=== PATIENT | female | born 1960 | race Caucasian/White ===

== ENCOUNTER 2016-03-05 08:44 | Emergency (ER) | payer OTHER, MEDICARE ==
[~2016-03-05] VITALS: Ht 160 cm; Wt 68.0 kg
[~2016-03-05 08:44] MED LIST: ADVAIR DISKUS 21 DSK PO; ALBUTEROL 3 ML3 ML INH; ALPH-E-MIXED-4400 IU PO; ALPRAZOLAM1 MG PO; ALPRAZOLAM2 MG PO; AMITRIPTYLINE100 M1 PO; AMITRIPTYLINE50 MG PO; AUGMENTIN 875 M1 TAB PO; CARISOPRODOL350 MG PO; CHANTIX 1 MG1 MG; CHANTIX 1 MG1 MG PO; CHROMIUM200 MCG PO; CINNAMON500 MG PO; DULOXETINE60 MG PO; FAMOTIDINE40 MG PO; FEOSOL65 MG PO; FLUTICASON0.05 MG/A2 NASB; FOLIC ACID0.4 MG PO; FORADIL AERO0.012 MG PO; LIORESAL 10MG T10 MG PO; METFORMIN ER500 MG PO; MONTELUKAST SOD10 MG PO; MORPHINE SULFA100 MG PO; MORPHINE SULFAT30 M1 PO; MS CONTIN30 M1 PO; NEXIUM 40MG40 MG PO; PREDNICOT10 MG PO; PREDNISONE20 M1 PO; PROAIR HFA0.09 MG/Ac PO; RELAFEN500 MG PO; ROBITUSSIN W/CO10 ML PO; TRAZODONE100 MG PO; TRAZODONE50 MG PO; TRIAMCINOLONE A15 G2 TOP; TYLENOL XSTR500 MG PO; VALTREX500 M1 PO; VITAMIN B COMPL1 CAP PO; VITAMIN C1000 M1 PO; VITAMIN D1000 IU PO; VITAMIN D50000 IU PO; WELCHOL3.75 GM/Pa PO; ZINC50 M1 PO
--- NOTE | 2016-03-05 09:23 | ED GENERAL ADULT ---
History of Present Illness General Chief Complaint: Upper Respiratory Sx/Fever Stated Complaint: CONGESTION/COUGH, L SHOULDER PAIN Source: patient Exam Limitations: no limitations Vital Signs & Intake/Output Vital Signs & Intake/Output Vital Signs Date Time Temp Pulse Resp B/P Pulse O2 O2 Flow FiO2 Ox Delivery Rate 03/05 1034 98.4 74 18 107/58 96 03/05 0848 98.3 111 18 124/82 97 Room Air Room Air Allergies Coded Allergies: aspirin (Severe, WHEEZE 09/07/15) blue dye (Severe, WHEEZING 09/07/15) egg (Severe, WHEEZING 09/07/15) shellfish derived (Severe, WHEEZING 09/07/15) celecoxib (SEIZURES 09/07/15) milk (WHEEZING 09/07/15) Reconcile Medications Albuterol Sulfate (Proventil) 2.5 MG/3 ML NEB 3 ML INH TID PRN SHORTNESS OF BREATH (Reported) Albuterol Sulfate (Proair Hfa) 0.09 MG/Actuation BARRETT 2 PUF PO Q4 HRS NEEDED PRN BREATHING PROBLEMS (Reported) Alprazolam 1 MG TAB 1 TAB PO QPM SLEEP/PTSD (Reported) Amitriptyline Hydrochloride (Amitriptyline HCl) 100 MG TAB 1 TAB PO QHS SLEEP (Reported) Amoxicillin 500 MG CAPSULE 1 CAP PO BID BRONCHITIS Carisoprodol 350 MG TAB 1 TAB PO TID MUSCLE RELAXER (Reported) Colesevelam Hydrochloride (Welchol) 3.75 GM/Packet PDR 1 PAC PO DAILY CHOLESTEROL (Reported) DULOXETINE HCL (Duloxetine) 60 MG CAPSULE.DR 1 CAP PO BID PTSD (Reported) ERGOCALCIFEROL (VITAMIN D2) (Vitamin D2) 50,000 UNIT CAPSULE 1 CAP PO QTHURS SUPPLEMENT (Reported) Esomeprazole (Nexium) 40 MG CAPSULE.DR 1 CAP PO BID GI (Reported) Fluticasone Propionate 50 MCG/ACTUATION SPRAY.SUSP 1 SPRAY NASB PRN ALLERGIES (Reported) FLUTICASONE/SALMETEROL (Advair 250-50 Diskus) 250 MCG-50 MCG/DOSE BLST.W.DEV 1 PUF PO PRN ASTHMA/ALLERGIES (Reported) Metformin Hydrochloride (Metformin ER) [address] 1 TAB PO QAM DIABETES ( Reported) Montelukast Sodium 10 MG TABLET 1 TAB PO QAM ASTHMA/ALLERGIES (Reported) Morphine Sulfate 30 MG TAB 1 TAB PO BID PRN PAIN (Reported) Morphine Sulfate (Morphine Sulfate ER) 100 MG TABLET.ER 1 TAB PO BID PAIN ( Reported) Morphine Sulfate (Ms Contin) 30 MG TABLET.ER 1 TAB PO BIDP PRN pain eight...[id number] Nabumetone (Relafen) 500 MG TAB 1 TAB PO BID PAIN (Reported) Prednisone 20 MG TABLET 2 TAB PO DAILY RASH TRAZODONE HCL (Trazodone HCl) 100 MG TAB 1 TAB PO QPM SLEEP (Reported) Triamcinolone Acetonide 0.5 % CREAM..G. 1 ALEJANDRA TOP BID RASH apply to affected area(s) Valacyclovir Hydrochloride (Valtrex) 500 MG TABLET 1 TAB PO BID HERPES Varenicline (Chantix 1 MG) (Unknown Strength) TAB (Unknown Dose) UNKNOWN ( Reported) Triage Note: TRIAGE: 55 Y/O FEMALE PRESENTS C/O 710 LEFT SHOULDER PAIN IN ADDITIONAL TO FACIAL CONGESTION. REPORTS TOOK 1000MG TYLENOL WITH HER 100MG MORPHINE THIS MORNING (TAKES 260MG MORPHINE DAILY FOR HER FIBROMYALGIA). Triage Nurses Notes Reviewed? yes Onset: Abrupt Duration: day(s): Timing: recent history HPI: 03/05/16 9:33 AM 55-year-old female presents to the emergency department with cough congestion runny nose yellow sputum production no fever. The patient states she has a history of fibromyalgia, osteoarthritis, [id number] diabetes, COPD, and chronic pain. She is currently on oral morphine sulfate as needed for pain. The patient lives in a halfway and there are others who have a viral respiratory tract infection. The onset of the symptoms were abrupt, the duration has been several days, the severity is significant as her symptoms required her to come to the emergency department for care. She says that she hasn't eaten today because the food at the halfway has several things she is allergic to. She is requesting a meal tray. On physical exam she has a minimally injected pharynx, lungs are clear, abdomen is soft and nontender, she has minimal lower extremity edema. Past History Travel History Traveled to [place] past 21 day No Medical History Any Pertinent Medical History? see below for history Neurological: SHORT TERM MEMORY LOSS EENT: NONE Cardiovascular: HIGH CHOL Respiratory: asthma, CPAP Gastrointestinal: NONE Hepatic: NONE Renal: NONE Musculoskeletal: fibromyalgia Psychiatric: DRUG WITHDRAWEL SYNDROME DEPRESSIVE DISORDER Endocrine: DIABETIC Blood Disorders: NONE Cancer(s): NONE MEAT HOSTESS/Reproductive: NONE History of MRSA: No History of VRE: No History of CDIFF: No Surgical History Surgical History: non-contributory Psychosocial History Who do you live with Other (see notes) Services at Home None What is your primary language Ghanaian Tobacco Use: Never used ETOH Use: denies use Illicit Drug Use: denies illicit drug use Family History Hx Contributory? No Review of Systems Review of Systems Constitutional: Reports: fever. EENTM: Reports: see HPI. Respiratory: Denies: short of breath. Cardiovascular: Denies: chest pain. GI: Denies: abdominal pain. Genitourinary: Reports: no symptoms. Musculoskeletal: Reports: see HPI, muscle pain. Skin: Denies: rash. Neurological/Psychological: Reports: anxiety. Hematologic/Endocrine: Denies: bruising, bleeding. Physical Exam Physical Exam General Appearance: alert, awake, anxious, mild distress Head: atraumatic, normal appearance Eyes: Bilateral: normal appearance, PERRL, EOMI. Ears, Nose, Throat: normal pharynx, normal ENT inspection, hearing grossly normal Neck: normal inspection, supple, full range of motion Respiratory: normal breath sounds, chest non-tender, no respiratory distress Cardiovascular: regular rate/rhythm Peripheral Pulses: 4+ radial (R), 4+ radial (L) Gastrointestinal: soft, non-tender Back: decreased range of motion Extremities: pedal edema, tenderness (minimal left ant shoulder) Neurologic/Psych: no motor/sensory deficits, awake, alert, oriented x 3 Skin: intact, normal color, warm/dry Core Measures ACS in differential dx? No CVA/TIA Diagnosis: No Severe Sepsis Present: No Septic Shock Present: No Progress Differential Diagnoses I considered the following diagnoses in my evaluation of the patient: Bronchitis , pneumonia, upper respiratory tract infection, fibromyalgia Plan of Care: Orders Procedure Date/time Status Heart Healthy Diet 03/05 L Active FingerStick- Glucose 03/05 0934 Active Initial ED EKG: none Departure Departure Disposition: HOME OR SELF CARE Condition: Stable Clinical Impression Primary Impression: URI (upper respiratory infection) Secondary Impressions: Fibromyalgia Referrals: ANDREZ SCHWARTZ,KAREN Marroquin (PCP/Family) Departure Forms: Customer Survey General Discharge Information Prescriptions: Current Visit Scripts Amoxicillin 1 CAP PO BID #20 CAP Critical Care Note Critical Care Note Critical Care Time: non-applicable
[2016-03-05] MEDS ORDERED: AMOXICILLIN500 M2 PO (09:37)
[2016-03-05 10:34] VITALS: BP 107/58
== END 2016-03-05 10:49 ==
LOC: ERH 08:44
DX: J06.9 Acute upper respiratory infection, unspecified (principal); M79.7 Fibromyalgia; E11.9 Type 2 diabetes mellitus without complications; Z79.84 Long term (current) use of oral hypoglycemic drugs

== ENCOUNTER 2016-05-31 12:56 | Emergency (ER) | payer OTHER, MEDICARE ==
[~2016-05-31] VITALS: Ht 160 cm; Wt 63.5 kg
[~2016-05-31 12:56] MED LIST changes: +AMOXICILLIN500 M2 PO
[2016-05-31 13:00] VITALS: BP 139/77
[2016-05-31] MEDS ORDERED: TRIAMCINOLONE A15 G1 TOP (13:17)
[2016-05-31] MEDS ORDERED: PERMETHRIN60 GM TOP (13:17)
[2016-05-31] MEDS ORDERED: HYDROXYZINE HCL50 M1 PO (13:17)
[2016-05-31] MEDS ORDERED: DOXYCYCLINE HY100 M4 PO (13:17)
--- NOTE | 2016-05-31 13:18 | ED SKIN/ALLERGY COMPLAINT ---
History of Present Illness General Chief Complaint: Skin Rash/ Abcess Stated Complaint: RASH ALL OVER BODY Source: patient Exam Limitations: no limitations Vital Signs & Intake/Output Vital Signs & Intake/Output Vital Signs Date Time Temp Pulse Resp B/P B/P Pulse O2 O2 Flow FiO2 Mean Ox Delivery Rate 05/31 1300 96.8 103 18 139/77 100 Room Air Allergies Coded Allergies: aspirin (Severe, WHEEZE 09/07/15) blue dye (Severe, WHEEZING 09/07/15) egg (Severe, WHEEZING 09/07/15) shellfish derived (Severe, WHEEZING 09/07/15) celecoxib (SEIZURES 09/07/15) milk (WHEEZING 09/07/15) Reconcile Medications Albuterol Sulfate (Proventil) 2.5 MG/3 ML NEB 3 ML INH TID PRN SHORTNESS OF BREATH (Reported) Albuterol Sulfate (Proair Hfa) 0.09 MG/Actuation BARRETT 2 PUF PO Q4 HRS NEEDED PRN BREATHING PROBLEMS (Reported) Alprazolam 1 MG TAB 1 TAB PO QPM SLEEP/PTSD (Reported) Amitriptyline Hydrochloride (Amitriptyline HCl) 100 MG TAB 1 TAB PO QHS SLEEP (Reported) Amoxicillin 500 MG CAPSULE 1 CAP PO BID BRONCHITIS Carisoprodol 350 MG TAB 1 TAB PO TID MUSCLE RELAXER (Reported) Colesevelam Hydrochloride (Welchol) 3.75 GM/Packet PDR 1 PAC PO DAILY CHOLESTEROL (Reported) Doxycycline Hyclate 100 MG TABLET 1 TAB PO BID rash DULOXETINE HCL (Duloxetine) 60 MG CAPSULE.DR 1 CAP PO BID PTSD (Reported) ERGOCALCIFEROL (VITAMIN D2) (Vitamin D2) 50,000 UNIT CAPSULE 1 CAP PO QTHURS SUPPLEMENT (Reported) Esomeprazole (Nexium) 40 MG CAPSULE.DR 1 CAP PO BID GI (Reported) Fluticasone Propionate 50 MCG/ACTUATION SPRAY.SUSP 1 SPRAY NASB PRN ALLERGIES (Reported) FLUTICASONE/SALMETEROL (Advair 250-50 Diskus) 250 MCG-50 MCG/DOSE BLST.W.DEV 1 PUF PO PRN ASTHMA/ALLERGIES (Reported) Hydroxyzine HCl 50 MG TABLET 1 TAB PO QPM itching Metformin Hydrochloride (Metformin ER) [address] 1 TAB PO QAM DIABETES ( Reported) Montelukast Sodium 10 MG TABLET 1 TAB PO QAM ASTHMA/ALLERGIES (Reported) Morphine Sulfate 30 MG TAB 1 TAB PO BID PRN PAIN (Reported) Morphine Sulfate (Morphine Sulfate ER) 100 MG TABLET.ER 1 TAB PO BID PAIN ( Reported) Morphine Sulfate (Ms Contin) 30 MG TABLET.ER 1 TAB PO BIDP PRN pain eight...[id number] Nabumetone (Relafen) 500 MG TAB 1 TAB PO BID PAIN (Reported) Permethrin 5 % CREAM..G. 1 ALEJANDRA TOP ONCE SCABIES massage into skin from head to soles of feet one time, leave on for 8-14 hours then remove by thorough washing Prednisone 20 MG TABLET 2 TAB PO DAILY RASH TRAZODONE HCL (Trazodone HCl) 100 MG TAB 1 TAB PO QPM SLEEP (Reported) Triamcinolone Acetonide 0.1 % CREAM..G. 0.1 % TOP BID RASH Triamcinolone Acetonide 0.5 % CREAM..G. 1 ALEJANDRA TOP BID RASH apply to affected area(s) Valacyclovir Hydrochloride (Valtrex) 500 MG TABLET 1 TAB PO BID HERPES Varenicline (Chantix 1 MG) (Unknown Strength) TAB (Unknown Dose) UNKNOWN ( Reported) Triage Note: 55 Y/O FEMALE C/O RASH TO ENTIRE BODY X 2 WEEKS. HAS VARIOUS AREAS ON EXPOSED SKIN OF RED HIVES. PT STATES HIVES ARE INTERMITTENT AND ALL OVER BODY. +ITCHY Triage Nurses Notes Reviewed? yes Onset: Abrupt Duration: day(s):, constant, continues in ED Timing: recent history Severity: mild, moderate Location: generalized No Modifying Factors: none HPI: 55-year-old female that lives in a homeless usp currently comes in with rash on upper and lower extremities. Patient also has some on her torso and face. They're itching. Small little red areas. She reports that her roommates have similar itching. She complains that they are extremely pruritic. Denies any vomiting. Denies any other associated symptoms. Past History Travel History Traveled to [place] past 21 day No Medical History Any Pertinent Medical History? 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 No Review of Systems Review of Systems Constitutional: Reports: no symptoms. EENTM: Reports: no symptoms. Respiratory: Reports: no symptoms. Cardiovascular: Reports: no symptoms. GI: Reports: no symptoms. Genitourinary: Reports: no symptoms. Musculoskeletal: Reports: no symptoms. Skin: Reports: see HPI. Neurological/Psychological: Reports: no symptoms. Hematologic/Endocrine: Reports: no symptoms. Immunologic/Allergic: Reports: no symptoms. All Other Systems: Reviewed and Negative Physical Exam Physical Exam General Appearance: well developed/nourished, mild distress Head: atraumatic Eyes: Bilateral: normal appearance. Ears, Nose, Throat: normal ENT inspection, hearing grossly normal Neck: normal inspection Respiratory: no respiratory distress Cardiovascular: regular rate/rhythm Back: normal inspection Extremities: normal inspection, normal range of motion, no edema Neurologic/Psych: awake, alert, oriented x 3, normal mood/affect Skin: intact, rash Skin Problem Location: generalized Skin Problem Character: erythematous patches/nodules/papules nondescript scattered, Lymphatic: no anterior cervical natalia Progress Differential Diagnosis: abscess/cellulitis, allergic reaction, contact dermatitis, erythema multiforme, lyme disease, meningitis/sepsis, piyriasis rosea, scabies, bedbugs, Plan of Care: 05/31/2016 1:28:49 PM Rashes most consistent with scabies versus bed bugs. Patient treated with permethrin cream. Educated on needing a new location for sleeping. Clinically looks well. Patient requesting antibiotic because she reports his health last time. I told her I do not feel this is cellulitic/infection related blood patient was started on a short course because she was insistent that she needed them. Patient was told to follow-up with her regular doctor. Return if any other concerns. Departure Departure Disposition: HOME OR SELF CARE Condition: Stable Clinical Impression Primary Impression: Scabies Referrals: ANDREZ SCHWARTZ,KAREN Marroquin (PCP/Family) Additional Instructions: Use permethrin cream as prescribed. Take hydroxyzine and doxycycline as prescribed. Use topical triamcinolone cream over area after permethrin cream is used. Do not sleep in the same bed that he had been sleeping IN. An pleasure craft sailor needs to be called for the usp. Please go over all results of today's visit with your primary care doctor. Contact your primary care doctor to let them know you were here in the emergency room. There may be nonspecific findings which may not be related to your visit today here in the emergency room but may require further evaluation and chronic monitoring by your primary care doctor. If you had a laceration today the chance of foreign body always remains. You should follow-up with your primary care doctor for recheck in 3-5 days for a wound check. If you had an x-ray done there is a chance that a fracture could have been missed on initial read and you should follow-up with your primary care doctor for repeat x-rays if symptoms persist. If your blood pressure was elevated here in the emergency room please have rechecked by her primary care doctor within the next 48 hours by your primary care doctor. If you were prescribed a narcotic here in the emergency room or any type of controlled substances you're not allowed to drive while taking this medication or operate any type of heavy machinery. Narcotics can make you feel lightheaded dizziness nausea and can cause constipation. You may need to burr picker a stool softener. Thank you for choosing [facility] emergency room. Please return to the emergency room immediately if you have any other concerns worsening of symptoms. Departure Forms: Customer Survey General Discharge Information Prescriptions: Current Visit Scripts Triamcinolone Acetonide 0.1 % TOP BID #45 GM Permethrin 1 ALEJANDRA TOP ONCE #60 GM massage into skin from head to soles of feet one time, leave on for 8-14 hours then remove by thorough washing Hydroxyzine HCl 1 TAB PO QPM #30 TAB Doxycycline Hyclate 1 TAB PO BID #14 TAB
== END 2016-05-31 13:28 ==
LOC: ERH 12:56
DX: B86 Scabies (principal)

== ENCOUNTER 2017-02-12 22:22 | Emergency (ER) | payer OTHER, MEDICARE ==
[~2017-02-12] VITALS: Ht 160 cm; Wt 68.0 kg
[~2017-02-12 22:22] MED LIST changes: +AMOXICILLIN875 M1 PO; +DOXYCYCLINE HY100 M4 PO; +HYDROXYZINE HCL50 M1 PO; +PERMETHRIN60 GM TOP; +TOPICAINE 5113 GM TOP; +TRIAMCINOLONE A15 G1 TOP
[2017-02-12 22:25] VITALS: BP 141/82
--- NOTE | 2017-02-12 22:45 | ED THROAT/DENTAL COMPLAINT ---
History of Present Illness General Chief Complaint: Sore Throat, Dental Pain Stated Complaint: "HOT COCA BURNT MY THROAT" Source: patient Exam Limitations: no limitations Vital Signs & Intake/Output Vital Signs & Intake/Output Vital Signs Date Time Temp Pulse Resp B/P B/P Pulse O2 O2 Flow FiO2 Mean Ox Delivery Rate 02/12 2225 98.7 114 18 141/82 98 Room Air Allergies Coded Allergies: aspirin (Severe, WHEEZE 09/07/15) blue dye (Severe, WHEEZING 09/07/15) egg (Severe, WHEEZING 09/07/15) shellfish derived (Severe, WHEEZING 09/07/15) celecoxib (SEIZURES 09/07/15) milk (WHEEZING 09/07/15) Reconcile Medications Albuterol Sulfate (Proventil) 2.5 MG/3 ML NEB 3 ML INH TID PRN SHORTNESS OF BREATH (Reported) Albuterol Sulfate (Proair Hfa) 0.09 MG/Actuation BARRETT 2 PUF PO Q4 HRS NEEDED PRN BREATHING PROBLEMS (Reported) Alprazolam 1 MG TAB 1 TAB PO QPM SLEEP/PTSD (Reported) Amitriptyline Hydrochloride (Amitriptyline HCl) 100 MG TAB 1 TAB PO QHS SLEEP (Reported) Amoxicillin 500 MG CAPSULE 1 CAP PO BID BRONCHITIS Amoxicillin 875 MG TABLET 1 TAB PO BID tooth infection Carisoprodol 350 MG TAB 1 TAB PO TID MUSCLE RELAXER (Reported) Colesevelam Hydrochloride (Welchol) 3.75 GM/Packet PDR 1 PAC PO DAILY CHOLESTEROL (Reported) Doxycycline Hyclate 100 MG TABLET 1 TAB PO BID rash DULOXETINE HCL (Duloxetine) 60 MG CAPSULE.DR 1 CAP PO BID PTSD (Reported) ERGOCALCIFEROL (VITAMIN D2) (Vitamin D2) 50,000 UNIT CAPSULE 1 CAP PO QTHURS SUPPLEMENT (Reported) Esomeprazole (Nexium) 40 MG CAPSULE.DR 1 CAP PO BID GI (Reported) Fluticasone Propionate 50 MCG/ACTUATION SPRAY.SUSP 1 SPRAY NASB PRN ALLERGIES (Reported) FLUTICASONE/SALMETEROL (Advair 250-50 Diskus) 250 MCG-50 MCG/DOSE BLST.W.DEV 1 PUF PO PRN ASTHMA/ALLERGIES (Reported) Hydroxyzine Hydrochloride (Atarax) 50 MG TABLET 1 TAB PO QPM itching Lidocaine (Topicaine 5) 5 % GEL..GRAM. 5 % TOP BID PAIN Lidocaine HCl (Lidocaine HCl Viscous) 2 % SOLUTION 15 ML PO 4 TIMES/DAY PRN ORAL/THROAT PAIN Metformin Hydrochloride (Metformin ER) [address] 1 TAB PO QAM DIABETES ( Reported) Methylprednisolone. (Medrol) 4 MG TAB.DS.PK 1 DP PO AD AIRWAY SWELLING 6 on day 1 then reduce by one tablet daily until gone Montelukast Sodium 10 MG TABLET 1 TAB PO QAM ASTHMA/ALLERGIES (Reported) Morphine Sulfate 30 MG TAB 1 TAB PO BID PRN PAIN (Reported) Morphine Sulfate (Morphine Sulfate ER) 100 MG TABLET.ER 1 TAB PO BID PAIN ( Reported) Morphine Sulfate (Ms Contin) 30 MG TABLET.ER 1 TAB PO BIDP PRN pain eight...[id number] Nabumetone (Relafen) 500 MG TAB 1 TAB PO BID PAIN (Reported) Permethrin 5 % CREAM..G. 1 ALEJANDRA TOP ONCE SCABIES massage into skin from head to soles of feet one time, leave on for 8-14 hours then remove by thorough washing Prednisone 20 MG TABLET 2 TAB PO DAILY RASH TRAZODONE HCL (Trazodone HCl) 100 MG TAB 1 TAB PO QPM SLEEP (Reported) Triamcinolone Acetonide 0.1 % CREAM..G. 0.1 % TOP BID RASH Triamcinolone Acetonide 0.5 % CREAM..G. 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 O2 SAT 98%. DENIES TONGUE SWELLING. "IT BURNED ALL THE WAY DOWN MY THROAT" Triage Nurses Notes Reviewed? yes Onset: Abrupt Duration: hour(s): (1), constant, continues in ED, getting worse Timing: single episode today Injury Environment: home Severity: moderate, severe Severity Numbers: 7 No Modifying Factors: none LMP (ages 10-50): post menopausal : No Patient currently breastfeeds: No HPI: 56-year-old female past medical history of fibromyalgia, diabetes, asthma and COPD presents for evaluation after she burned her mouth and throat with hot chocolate. Patient states that about 1 hour prior to presentation she was drinking hot chocolate. She took one sip and immediately felt a burning in her lips tongue and down her throat. She denies any difficulty swallowing difficulty breathing. No swelling of her lips tongue or throat. No drooling. She reports pain in her lips and throat. She has been able tolerate fluids since. She states that she drank a lot of icewater. No history of anaphylaxis. (Vitor Carlson) Past History Travel History Traveled to [place] past 21 day No Medical History Any Pertinent Medical History? 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 No (Vitor Carlson) Review of Systems Review of Systems Constitutional: Reports: no symptoms. EENTM: Reports: see HPI, throat pain, mouth pain. Respiratory: Reports: no symptoms. Cardiovascular: Reports: no symptoms. GI: Reports: no symptoms. Genitourinary: Reports: no symptoms. Musculoskeletal: Reports: no symptoms. Skin: Reports: no symptoms. Neurological/Psychological: Reports: no symptoms. Hematologic/Endocrine: Reports: no symptoms. Immunologic/Allergic: Reports: no symptoms. All Other Systems: Reviewed and Negative (Vitor Carlson) Physical Exam Physical Exam General Appearance: well developed/nourished, no apparent distress, alert, awake Head: atraumatic, normal appearance Eyes: Bilateral: normal appearance, PERRL, EOMI. Nose: normal inspection Mouth/Throat: normal mouth inspection, pharynx normal, THERE IS NO SWELLING ERYTHEMA OR BLISTERING IN THE PERIORBITAL AREA LIPS TONGUE OR POSTERIOR PHARYNX. nO TRISMUS. pATIENT IS HERE WITH SECRETIONS. 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 No Sepsis Present: No Sepsis Focused Exam Completed? No (Vitor Carlson) Progress Differential Diagnosis: SUPERFICIAL BURN, deep burn, stridor Plan of Care: Patient seen and evaluated. Does not appear to be any evidence of kessler to the perioral area. Patient is handling secretions. She is able to eat and drink since the burn. Patient was given a prescription for viscous lidocaine to use for pain control. Also advised to use Tylenol. She'll be given a Medrol Dosepak to reduce any potential swelling. Advised her to follow up with her primary care doctor this week. Discussed return precautions in detail Monitor symptoms return with any concerns. (Vitor Carlson) Departure Departure Disposition: HOME OR SELF CARE Condition: Stable Clinical Impression Primary Impression: Mouth burn Qualifiers: Encounter type: initial encounter Qualified Code: T28.0XXA - Burn of mouth and pharynx, initial encounter Referrals: Patient Has No Primary Care Dr (PCP/Family) Additional Instructions: Rest and drink plenty of cool fluids. Keep your mouth clean with an antiseptic nonalcohol mouthwash. Take steroid pack as directed for the full course. Tylenol ibuprofen for pain. Viscous lidocaine can also be used as needed for pain. Make a follow-up with YOUr primary care doctor and GI doctor as soon as possible. Monitor symptoms return to the emergency department with any concerns. Departure Forms: Customer Survey General Discharge Information Prescriptions: Current Visit Scripts Methylprednisolone. (Medrol) 1 DP PO AD #1 DP 6 on day 1 then reduce by one tablet daily until gone Lidocaine HCl (Lidocaine HCl Viscous) 15 ML PO 4 TIMES/DAY PRN ORAL/THROAT PAIN #100 ML (Vitor Carlson) PA/LATIN PROFESSOR Co-Sign Statement Statement: ED Attending supervision documentation- [] I saw and evaluated the patient. I have also reviewed all the pertinent lab results and diagnostic results. I agree with the findings and the plan of care as documented in the PA's/LATIN PROFESSOR's documentation. [x] I have reviewed the ED Record and agree with the PA's/LATIN PROFESSOR's documentation. [] Additions or exceptions (if any) to the PAs/LATIN PROFESSOR's note and plan are summarized below: [] (Gilmar SCHWARTZ,Cabrera Rodriguez)
[2017-02-12] MEDS ORDERED: MEDROL4 M2 PO (22:56)
[2017-02-12] MEDS ORDERED: LIDOCAINE HCL V15 ML PO (22:56)
== END 2017-02-12 23:00 ==
LOC: ERH 22:22
DX: T28.0XXA Burn of mouth and pharynx, initial encounter (principal); X10.1XXA Contact with hot food, initial encounter; Y92.9 Unspecified place or not applicable; Y93.9 Activity, unspecified

== ENCOUNTER 2017-06-22 18:11 | Emergency (ER) | payer OTHER, MEDICARE ==
[~2017-06-22] VITALS: Ht 160 cm; Wt 63.5 kg
[~2017-06-22 18:11] MED LIST changes: +LIDOCAINE HCL V15 ML PO; +MEDROL4 M2 PO
[2017-06-22 18:41] LABS: ABSOLUTE BASOPHIL COUNT 0 /CUMM (0.0-0.2); ABSOLUTE EOSINOPHIL COUNT 0.3 /CUMM (0.0-0.7); ABSOLUTE GRANULOCYTE CT 3.8 /CUMM (1.4-6.5); ABSOLUTE LYMPH COUNT 1.8 /CUMM (1.2-3.4); ABSOLUTE MONOCYTE COUNT 0.4 /CUMM (0.10-0.60); BASOPHIL % 0.4 % (0.0-2.0); GRANULOCYTE % 60.2 % (42.2-75.2); HEMATOCRIT 38.5 % (37-47); MEAN CORPUSCULAR HGB CONC 32.7 G/DL (33.0-37.0); MEAN CORPUSCULAR VOLUME 82.7 FL (81.0-99.0); MEAN PLATELET VOLUME 7.3 FL (7.4-10.4); PLATELET COUNT 337 /CUMM (130-400); RBC DISTRIBUTION WIDTH 12.7 % (11.5-14.5); RED BLOOD CELL CT 4.66 /CUMM (4.20-5.40); WHITE BLOOD CELL COUNT 6.4 /CUMM (4.8-10.8)
--- NOTE | 2017-06-22 19:02 | ED GENERAL ADULT ---
History of Present Illness General Chief Complaint: General Adult Stated Complaint: CHILLS, FEVER, DIZZY, X 4 DAYS Source: patient, old records Exam Limitations: no limitations Vital Signs & Intake/Output Vital Signs & Intake/Output Vital Signs Date Time Temp Pulse Resp B/P B/P Pulse O2 O2 Flow FiO2 Mean Ox Delivery Rate 06/22 1944 98.0 98 20 138/70 98 Room Air 06/22 1814 98.0 104 16 141/87 95 Room Air ED Intake and Output 06/23 0000 06/22 1200 Intake Total 0 Output Total Balance 0 Intake, Oral 0 Patient 140 lb Weight Weight Reported by Patient Measurement Method Allergies Coded Allergies: aspirin (Severe, WHEEZE 09/07/15) blue dye (Severe, WHEEZING 09/07/15) egg (Severe, WHEEZING 09/07/15) shellfish derived (Severe, WHEEZING 09/07/15) celecoxib (SEIZURES 09/07/15) milk (WHEEZING 09/07/15) Reconcile Medications Albuterol Sulfate (Proventil) 2.5 MG/3 ML NEB 3 ML INH TID PRN SHORTNESS OF BREATH (Reported) Albuterol Sulfate (Proair Hfa) 0.09 MG/Actuation BARRETT 2 PUF PO Q4 HRS NEEDED PRN BREATHING PROBLEMS (Reported) Alprazolam 1 MG TAB 1 TAB PO QPM SLEEP/PTSD (Reported) Amitriptyline Hydrochloride (Amitriptyline HCl) 100 MG TAB 1 TAB PO QHS SLEEP (Reported) Amoxicillin 500 MG CAPSULE 1 CAP PO BID BRONCHITIS Amoxicillin 875 MG TABLET 1 TAB PO BID tooth infection Carisoprodol 350 MG TAB 1 TAB PO TID MUSCLE RELAXER (Reported) Colesevelam Hydrochloride (Welchol) 3.75 GM/Packet PDR 1 PAC PO DAILY CHOLESTEROL (Reported) Doxycycline Hyclate 100 MG TABLET 1 TAB PO BID rash DULOXETINE HCL (Duloxetine) 60 MG CAPSULE.DR 1 CAP PO BID PTSD (Reported) ERGOCALCIFEROL (VITAMIN D2) (Vitamin D2) 50,000 UNIT CAPSULE 1 CAP PO QTHURS SUPPLEMENT (Reported) Esomeprazole (Nexium) 40 MG CAPSULE.DR 1 CAP PO BID GI (Reported) Fluticasone Propionate 50 MCG/ACTUATION SPRAY.SUSP 1 SPRAY NASB PRN ALLERGIES (Reported) FLUTICASONE/SALMETEROL (Advair 250-50 Diskus) 250 MCG-50 MCG/DOSE BLST.W.DEV 1 PUF PO PRN ASTHMA/ALLERGIES (Reported) Hydroxyzine Hydrochloride (Atarax) 50 MG TABLET 1 TAB PO QPM itching Lidocaine (Topicaine 5) 5 % GEL..GRAM. 5 % TOP BID PAIN Lidocaine HCl (Lidocaine HCl Viscous) 2 % SOLUTION 15 ML PO 4 TIMES/DAY PRN ORAL/THROAT PAIN Metformin Hydrochloride (Metformin ER) [address] 1 TAB PO QAM DIABETES ( Reported) Methylprednisolone. (Medrol) 4 MG TAB.DS.PK 1 DP PO AD AIRWAY SWELLING 6 on day 1 then reduce by one tablet daily until gone Montelukast Sodium 10 MG TABLET 1 TAB PO QAM ASTHMA/ALLERGIES (Reported) Morphine Sulfate 30 MG TAB 1 TAB PO BID PRN PAIN (Reported) Morphine Sulfate (Morphine Sulfate ER) 100 MG TABLET.ER 1 TAB PO BID PAIN ( Reported) Morphine Sulfate (Ms Contin) 30 MG TABLET.ER 1 TAB PO BIDP PRN pain eight...[id number] Nabumetone (Relafen) 500 MG TAB 1 TAB PO BID PAIN (Reported) Ondansetron (Zofran Odt) 4 MG TAB.RAPDIS 1 TAB SL TID PRN NAUSEA Permethrin 5 % CREAM..G. 1 ALEJANDRA TOP ONCE SCABIES massage into skin from head to soles of feet one time, leave on for 8-14 hours then remove by thorough washing Prednisone 20 MG TABLET 2 TAB PO DAILY RASH TRAZODONE HCL (Trazodone HCl) 100 MG TAB 1 TAB PO QPM SLEEP (Reported) Triamcinolone Acetonide 0.1 % CREAM..G. 0.1 % TOP BID RASH Triamcinolone Acetonide 0.5 % CREAM..G. 1 ALEJANDRA TOP BID RASH apply to affected area(s) Valacyclovir Hydrochloride (Valtrex) 500 MG TABLET 1 TAB PO BID HERPES Varenicline (Chantix 1 MG) (Unknown Strength) TAB (Unknown Dose) UNKNOWN ( Reported) Triage Note: 56 Y/O FEMALE C/O DIZZINESS, NAUSEA, "SWEATING AND THEN COLD" X 4 DAYS. ALSO C/O "DRY THROAT". DENIES COUGH. DENIES URINARY SYMPTOMS. DENIES RECENT SICK CONTACTS. AFEBRILE AKI FLOWERS IN TRIAGE FOR EVAL Triage Nurses Notes Reviewed? yes Onset: Abrupt Duration: day(s): (4), constant, waxing and waning Timing: recent history Injury Environment: home Severity: mild Severity Numbers: 4 No Modifying Factors: none Associated Symptoms: denies HPI: 56-year-old female history of asthma, fibromyalgia presents to ER for evaluation complaining of 4 day history of generalized body aches and nausea and intermittent dizziness. She denies vomiting abdominal pain. She states that she had a dry throat a few days ago are no symptoms resolve. No cough. No fever how she reports chills. No sick contacts no recent travel she is not taken anything for her symptoms no diarrhea or last bowel movement was 2 days ago normal. (Richard Kay) Past History Travel History Traveled to [place] past 21 day No Medical History Any Pertinent Medical History? see below for history Neurological: SHORT TERM MEMORY LOSS EENT: NONE Cardiovascular: HIGH CHOL Respiratory: asthma, COPD, CPAP Gastrointestinal: NONE Hepatic: NONE Renal: NONE Musculoskeletal: fibromyalgia Psychiatric: DRUG WITHDRAWEL SYNDROME DEPRESSIVE DISORDER Endocrine: DIABETIC Blood Disorders: NONE Cancer(s): NONE WATER HAULER/Reproductive: NONE History of MRSA: No History of VRE: No History of CDIFF: No Surgical History Surgical History: non-contributory Psychosocial History Who do you live with Other (see notes) Services at Home None What is your primary language Slovenian Tobacco Use: Quit >30 days ago Family History Hx Contributory? No (Richard Kay) Review of Systems Review of Systems Constitutional: Reports: see HPI. (Richard Kay) Physical Exam Physical Exam General Appearance: well developed/nourished, no apparent distress, alert, awake Comments: Well-developed well-nourished patient in no apparent distress. Head/Face: Atraumatic, no maxillary/frontal sinus tenderness, no facial swelling Eyes: PERRL, EOMI, no conjunctival injection Ear:External auditory canals clear, no erythema, no FB. Nose: atraumatic.Normal inspection Throat: Moist mucous membranes.Pharynx normal. No pharyngeal erythema/exudate seen. No stridor/drooling or assymetry. No swelling or edema. Neck: Supple, no lymphadenopathy, FROM Back: FROM Cardiovascular: Regular rate and rhythms no murmurs rubs or gallops, Respiratory: No respiratory distress. Patient speaking in full complete sentences. Breath sounds clear to auscultation bilaterally: NO W/R/R Abdomen: Soft nontender no rebound or guarding Extremities: full range of motion Neuro: awake, alert, and oriented to person, place and time. There were no obvious focal neurologic abnormalities. Skin: Warm & dry;No appreciable rash on exposed skin Psych: Mood affect normal, normal memory normal judgment. Core Measures ACS in differential dx? No CVA/TIA Diagnosis: No Sepsis Present: No Sepsis Focused Exam Completed? No (Sabas PRABHAKAR,Richard) Progress Differential Diagnoses I considered the following diagnoses in my evaluation of the patient: Viral syndrome electrolyte abnormality dehydration and gastroenteritis obstruction and biliary colic appendicitis UTI Plan of Care: Orders Procedure Date/time Status Add-on Test (ER Only) 06/22 1844 Active TROPONIN LEVEL 06/23 1819 Complete MISTAKE 06/22 1816 Active URINALYSIS 06/22 1816 Complete LACTIC ACID 06/22 1816 Complete COMPREHENSIVE METABOLIC PANEL 06/22 1816 Complete CBC WITHOUT DIFFERENTIAL 06/22 1816 Complete Laboratory Tests 06/22/172116: Lactic Acid Cancelled 06/22/17 1910: Urine Color STRAW, Urine Clarity CLEAR, Urine pH 6.0, Ur Specific [place] <= 1.005, Urine Protein NEG, Urine Ketones NEG, Urine Nitrite NEG, Urine Bilirubin NEG, Urine Urobilinogen 0.2, Ur Leukocyte Esterase TRACE H, Ur Microscopic SEDIMENT EXAMINED, Urine WBC RARE, Ur Epithelial Cells RARE, Urine Hemoglobin NEG, Urine Glucose NEG 06/22/171819: Anion Gap 14, Estimated GFR > 60, BUN/Creatinine Ratio 13.3, Glucose 115 H, Lactic Acid 2.3 H, Calcium 9.9, Total Bilirubin 0.4, AST 35, ALT 42, Alkaline Phosphatase 173 H, Troponin I < 0.01, Total Protein 8.1, Albumin 4.7, Globulin 3.4, Albumin/Globulin Ratio 1.4, CBC w Diff NO MAN DIFF REQ, RBC 4.66, MCV 82.7, MCH 27.0, MCHC 32.7 L, RDW 12.7, MPV 7.3 L, Gran % 60.2, Lymphocytes % 28.3, Monocytes % 6.1, Eosinophils % 5.0, Basophils % 0.4, Absolute Granulocytes 3.8, Absolute Lymphocytes 1.8, Absolute Monocytes 0.4, Absolute Eosinophils 0.3, Absolute Basophils 0 Patient is nontoxic afebrile appearing labs ordered she is declining anything for nausea at this time currently drinking water no acute distress exam is otherwise unremarkable 06/22/2017 8:03:53 PMI discussed with the patient at length all of their results. She's been tolerating by mouth without vomiting. I had an extensive conversation regarding need for close follow up with their primary care physician this week as well as return precautions. I answered all of their questions, they feel comfortable with the plan and follow-up care. I discussed with the patient the medications that they will receive. I gave them signs and symptoms that could indicate an adverse reaction. I have advised them to limit their activities until they can see how they respond to the medication. Initial ED EKG: none (Richard Kay) Departure Departure Time of Disposition: 2002 Disposition: HOME OR SELF CARE Condition: Stable Clinical Impression Primary Impression: Viral syndrome Secondary Impressions: Nausea Referrals: Katty Womack APRN (PCP/Family) Additional Instructions: Zofran for nausea. [place] diet clear liquids advance as tolerated. Tylenol as directed for fever or chills. Follow-up with your primary care physician this week return at anytime sooner with any concerns. Departure Forms: Customer Survey General Discharge Information Prescriptions: Current Visit Scripts Ondansetron (Zofran Odt) 1 TAB SL TID PRN NAUSEA #10 TAB (Richard Kay) PA/LIQUOR COMMISSIONER Co-Sign Statement Statement: ED Attending supervision documentation- I saw and evaluated the patient. I have also reviewed all the pertinent lab results and diagnostic results. I agree with the findings and the plan of care as documented in the PA's/LIQUOR COMMISSIONER's documentation. x I have reviewed the ED Record and agree with the PA's/LIQUOR COMMISSIONER's documentation. [] Additions or exceptions (if any) to the PAs/LIQUOR COMMISSIONER's note and plan are summarized below: [] (Aston Roy MD) Critical Care Note Critical Care Note Critical Care Time: non-applicable (Richard Kay)
[2017-06-22 19:45] VITALS: BP 138/70
[2017-06-22] MEDS ORDERED: ZOFRAN ODT4 M1 SL (20:03)
[2017-06-27] MEDS ORDERED: LEVSIN0.125 M1 PO (10:06)
[2017-06-27] MEDS ORDERED: ZOFRAN ODT4 M1 SL (10:06)
== END 2017-06-22 20:11 ==
LOC: ERH 18:11
PROVIDERS: Physician Assistant
DX: B34.9 Viral infection, unspecified (principal); R11.0 Nausea
CPT/HCPCS: 81001